=== PATIENT | male | born 1980 | race Hispanic/Latino ===

== ENCOUNTER 2019-04-22 01:18 | Inpatient (IN) | payer OTHER ==
[2019-04-22] VITALS (24 sets, daily range): BP systolic 91–139; BP diastolic 68–104
[~2019-04-22] VITALS: Ht 165.1 cm; Wt 97.5 kg
[2019-04-22] MEDS ORDERED: KETOROLAC TROMETHAMINE 30 MG/ML VIAL IV STA (01:20)
--- NOTE | 2019-04-22 01:24 | NUR ---
CODE STEMI CALLED
[2019-04-22] MEDS ORDERED: ASPIRIN 81 MG CHEW TAB PO ONE (01:30)
[2019-04-22] MEDS ORDERED: ASPIRIN 81 MG CHEW TAB ONE (01:33)
--- NOTE | 2019-04-22 01:35 | NUR ---
ER AND THIS RN AT PTS BEDSIDE, PT INFORMED OF DIAGNOSIS AND NEED FOR CARDIAC PROCEDURE; CONSENTS REVIEWED, ALL AGREED UPON, AND SIGNED BY PATIENT
[2019-04-22 01:43] LABS: BASOPHILS % 0.3 % (0.0-1.0); EOSINOPHILS # (AUTO) 0.3 (0.0-0.4); EOSINOPHILS % 3.2 % (0.0-6.0); HEMATOCRIT 44.9 % (38.2-49.6); HEMOGLOBIN 15.5 g/dL (14.0-18.0); LYMPHOCYTES # (AUTO) 3.1 (1.0-3.2); LYMPHOCYTES % 32.5 % (18.0-39.1); MEAN CORPUSCULAR HEMOGLOBIN 29.9 pg (28-32); MEAN CORPUSCULAR HGB CONC 34.5 g/dL (31-35); MEAN CORPUSCULAR VOLUME 86.5 fL (81-99); MONOCYTES % 10.3 % (4.4-11.3); NEUTROPHILS % 53.5 % (38.7-80.0); PLATELET COUNT 266 x10e3/uL (140-360); RED BLOOD COUNT 5.19 x10e6/uL (4.3-5.7); RED CELL DISTRIBUTION WIDTH 12.4 % (11.7-14.4)
[2019-04-22] MEDS ORDERED: ONDANSETRON HCL INJ 2MG/ML 2ML 2 MG/ML VIAL IV STA (01:48)
[2019-04-22] MEDS ORDERED: MORPHINE SULFATE 2 MG/ML SYR 1ML IV STA (01:48)
[2019-04-22 01:52] LABS: INR 0.97; PROTHROMBIN TIME 13.5 seconds (11.9-14.5)
[2019-04-22 01:53] LABS: PARTIAL THROMBOPLASTIN TIME 32.5 seconds (23.8-35.5)
[2019-04-22] MEDS ORDERED: ONDANSETRON HCL INJ 2MG/ML 2ML 2 MG/ML VIAL ONE (01:55)
[2019-04-22] MEDS ORDERED: MORPHINE SULFATE 2 MG/ML SYR 1ML ONE (01:55)
[2019-04-22 02:01] LABS: ALANINE AMINOTRANSFERASE 24 IU/L (0-55); ALBUMIN 4.2 g/dL (3.5-5.0); ALKALINE PHOSPHATASE 75 IU/L (40-150); BLOOD UREA NITROGEN 11 mg/dL (7-26); BUN/CREATININE RATIO 11 (6-25); CALCIUM 9.5 mg/dL (8.4-10.2); CARBON DIOXIDE 27 mmol/L (22-29); CHLORIDE 104 mmol/L (98-107); CREATINE KINASE 161 IU/L (30-200); CREATININE, SERUM 1.01 mg/dL (0.72-1.25); EST GLOMERULAR FILTRATION RATE > 60 ML/MIN (60-); GLUCOSE 121 mg/dL (74-118); SODIUM 142 mmol/L (136-145)
--- NOTE | 2019-04-22 02:03 | NUR ---
ER MD AND PRIMARY RN NOTIFIED AND AWARE OF CRITICAL LAB VALUE, TROPONIN 1.68.
--- NOTE | 2019-04-22 02:03 | NUR ---
REPORT GIVEN TO DIVISIONAL HUMAN RESOURCES DIRECTOR RNALBARO - INFORMED OF ELEVATED TROPONIN 1.68
--- NOTE | 2019-04-22 02:10 | NUR ---
PT TANSPORTED TO BATTERY TEST ENGINEER VIA STRETCHER
[2019-04-22] MEDS ORDERED: HEPARIN SOD (PORCINE) 1000 UNIT/ML 30ML ONE (02:12)
[2019-04-22] MEDS ORDERED: VERAPAMIL HCL 2.5 MG/ML 2 ML VIAL ONE (02:12)
[2019-04-22] MEDS ORDERED: MIDAZOLAM HCL 2 MG/2 ML VIAL ONE (02:13)
[2019-04-22] MEDS ORDERED: FENTANYL CITRATE/PF 100MCG/2 ML INJ ONE (02:13)
[2019-04-22] MEDS ORDERED: LIDOCAINE HCL 2% LOCAL 20 ML VIAL ONE (02:13)
[2019-04-22 02:14] LABS: CHOL/HDL RATIO 4.8 (3.9-4.7)
[2019-04-22] MEDS ORDERED: SODIUM CHLORIDE 0.9% 1000ML 1,000 ML ONE ×2 (02:14→19:05)
[2019-04-22] MEDS ORDERED: NITROGLYCERIN/D5W 200 MCG/ML 250 ML ONE (02:14)
[2019-04-22] MEDS ORDERED: HEPARIN SOD/SOD CHLORIDE 2,000 ML ONE (02:14)
[2019-04-22] MEDS ORDERED: IOPAMIDOL 370 MG/ML 200 ML INFUS..BTL INJ ONE (02:14)
--- NOTE | 2019-04-22 02:16 | Diagnostic Imaging Report ---
EXAMINATION: CHEST SINGLE (PORTABLE) COMPARISON: None INDICATION: ^CHEST PAIN ^20190422 ^0125 ^Y DISCUSSION: Frontal view of the chest obtained at 0125 hours. HEART AND MEDIASTINUM: The cardiomediastinal silhouette is unremarkable. LINES: None. LUNGS: The lungs are well inflated and clear. No pneumonia or pulmonary edema. PLEURA: No pleural effusion or pneumothorax. BONES AND SOFT TISSUES: No focal osseous lesion. The soft tissues are normal. IMPRESSION: No acute cardiopulmonary disease. Signed by: Dr. Hair Suh MD on 04/22/2019 2:13 AM
--- OUTSIDE RECORDS SUMMARY | 2019-04-22 03:09 | XMS REPORT ---
Author Author [facility] Address Unknown Phone Unavailable Care Team Providers [employer] Auger Operator Name Role Phone Iesla FRANCOIS Unavailable Unavailable Problems This patient has no known problems. Allergies, Adverse Reactions, Alerts This patient has no known allergies or adverse reactions. Medications This patient has no known medications. Results Test Description Test Time Test Comments Text Results Atomic Results Result Comments CHEST SINGLE (PORTABLE) 2019-04-22 02:12:00 [place] [id number] Patient Name: JEREMÍAS MEDINA MR #: [id number] : 1980 Age/Sex: 39/M Req #: [id number] Adm Physician: Ordered by: RAFI FRANCOIS MD Report #: [id number] Location: ER Room/Bed: Procedure: [id number] DX/CHEST SINGLE (PORTABLE) Exam Date: 04/22/19 Exam Time: 0125 REPORT STATUS: Signed EXAMINATION: CHEST SINGLE (PORTABLE) COM PARISON: None INDICATION: CHEST PAIN 20190422 0125 Y DISCUSSION: Frontal view of the chest obtained at 0125 hours. HEART AND MEDIASTINUM: The cardiomediastinal silhouette is unremarkable. LINES: None. LUNGS: The lungs are well inflated and clear. No pneumonia or pulmonary edema. PLEURA: No pleural effusion or pneumothorax. BONES AND SOFT TISSUES: No focal osseous lesion. The soft tissues are normal. IMPRESSION: No acute cardiopulmonary disease. Signed by: Dr. Fabien Suh MD on 04/22/2019 2:13 AM Dictated By: FABIEN SUH MD 2 Transcribed By: ISABEL on 04/22/19212 COPY TO: RAFI FRANCOIS MD
--- NOTE | 2019-04-22 03:19 | Consultation ---
DATE OF CONSULTATION: 04/22/2019 Cardiology Consult Note REASON FOR CONSULT: Suspected ST-elevation ND. CHIEF COMPLAINT: Chest pain radiating down the left arm. HISTORY OF PRESENT ILLNESS: The patient is a 39-year-old man with no previous cardiovascular history, family history of CAD, dad, status post ND at the age of 59, who presents with sudden onset of chest pain in the middle of his chest radiating down to the left arm associated with some diaphoresis. Denies any shortness of breath or heart failure symptoms. No syncope. PAST MEDICAL HISTORY: No significant past medical history. SOCIAL HISTORY: He does not smoke, drink, or abuse drugs. FAMILY HISTORY: As described in HPI. Father had an ND at age 58. REVIEW OF SYSTEMS: Negative other than what is mentioned in HPI. OUTPATIENT MEDICATIONS: None. ALLERGIES: NO KNOWN DRUG ALLERGIES. PHYSICAL EXAMINATION: VITAL SIGNS: Temperature afebrile, pulse 83, respiratory rate 14, blood pressure 142/80, saturating 99% on nasal cannula. GENERAL: Well-developed, well-nourished man in no acute distress. CARDIOVASCULAR: Regular rate and rhythm. No murmurs, rubs, or gallops. LUNGS: Clear to auscultation bilaterally. ABDOMEN: Soft, nontender, nondistended. NEURO AND PSYCH: Alert and oriented to person, place, and time. Normal affect. EXTREMITIES: Warm, well perfused. No ulceration. No edema. INPATIENT MEDICATIONS: Reviewed. LABORATORY DATA: Reviewed. TELEMETRY DATA: Troponin is pending. EKG reviewed shows ST elevations in the inferior leads. No significant reversible changes, however, there are no ST elevations in the anterior or lateral leads to make the diagnosis of pericarditis. ASSESSMENT: Suspected ST-elevation myocardial infarction. PLAN: We will proceed with emergent coronary angiography. Differential diagnosis includes pericarditis given he is young and has no significant risk factor. MD LIAM Jimenez/DOMINIQUE /[id number]
[2019-04-22] MEDS ORDERED: ASPIR 8181 MG PO (06:46)
[2019-04-22] MEDS ORDERED: ASPIRIN 325 MG TAB EC PO ONE (07:52)
--- NOTE | 2019-04-22 08:10 | Operative Report ---
DATE OF PROCEDURE: 04/22/2019 SURGEON: Zane Garza MD INDICATIONS FOR PROCEDURE: Suspected ST-elevation HI. Preprocedure assessment, risks, benefits, and alternatives of treatment were explained to the patient prior to the procedure. The patient has been deemed to be an appropriate candidate for moderate sedation. Informed consent was obtained and documented in the medical record. MEDICATIONS: Please see nursing notes for medications administered throughout the procedure. PROCEDURES PERFORMED: 1. Coronary angiography. 2. Left heart catheterization. PROCEDURE IN DETAIL: The patient was brought to the cardiac catheterization laboratory in an emergent fashion. Right wrist was prepped and draped in a sterile fashion. A 6-Lao Slender sheath was inserted in the right radial artery using modified Seldinger technique. Coronary angiography was performed using a 5-Lao Cristina radial catheter. Left heart catheterization was performed using a pigtail catheter. Multiple orthogonal views were taken of each coronary artery. All catheters were exchanged over a wire. Next, wound site was closed using TR band device. There were no immediate complications. SIGNIFICANT FINDINGS: Left dominant coronary system without any significant coronary artery disease. Left heart catheterization demonstrated LV end-diastolic pressure of 18 mmHg. No gradient across the aortic valve. LV angiogram demonstrated normal LV ejection fraction of 60-70%, with no regional wall motion abnormalities. IMPLANTS: None. SPECIMEN REMOVED: None. ESTIMATED BLOOD LOSS: 10 mL. COMPLICATIONS: None. FINAL RECOMMENDATIONS: 1. Start NSAIDs for treatment of pericarditis. 2. TR band deflation at 30 minutes. Zane Garza MD K[facility]/MODL /[id number]
[2019-04-22] MEDS ORDERED: ASPIRIN 325 MG TAB EC PO SCH (09:00)
[2019-04-22] MEDS ORDERED: ATORVASTATIN 20 MG TAB PO SCH (09:45)
[2019-04-22 10:22] LABS: BASOPHILS % 0.3 % (0.0-1.0); EOSINOPHILS # (AUTO) 0.3 (0.0-0.4); EOSINOPHILS % 3.6 % (0.0-6.0); HEMATOCRIT 41.5 % (38.2-49.6); HEMOGLOBIN 14.1 g/dL (14.0-18.0); LYMPHOCYTES % 29.1 % (18.0-39.1); MEAN CORPUSCULAR HEMOGLOBIN 29.6 pg (28-32); MONOCYTES # (AUTO) 0.7 (0.2-0.8); MONOCYTES % 9.5 % (4.4-11.3); NEUTROPHILS % 57.1 % (38.7-80.0); PLATELET COUNT 234 x10e3/uL (140-360); RED BLOOD COUNT 4.77 x10e6/uL (4.3-5.7); RED CELL DISTRIBUTION WIDTH 12.5 % (11.7-14.4)
--- NOTE | 2019-04-22 10:36 | NUR ---
ATORVASTATIN STARTED. PATIENT EDUCATED ON NEW MEDICATION AND HANDOUT GIVEN
[2019-04-22 10:46] LABS: ANION GAP 9.8 mmol/L (8-16); BLOOD UREA NITROGEN 10 mg/dL (7-26); BUN/CREATININE RATIO 13 (6-25); CALCIUM 8.9 mg/dL (8.4-10.2); CARBON DIOXIDE 25 mmol/L (22-29); CHLORIDE 108 mmol/L (98-107); CREATINE KINASE 376 IU/L (30-200); CREATININE, SERUM 0.75 mg/dL (0.72-1.25); EST GLOMERULAR FILTRATION RATE > 60 ML/MIN (60-); GLUCOSE 101 mg/dL (74-118); POTASSIUM 3.8 mmol/L (3.5-5.1); SODIUM 139 mmol/L (136-145)
[2019-04-22] MEDS ORDERED: ATORVASTATIN 40 MG TAB PO SCH ×2 (11:00→21:00)
--- NOTE | 2019-04-22 11:35 | NUR ---
PAGED CARDIOLOGY REGARDING PATIENT COMPLAINT OF INTERMITTENT MILD CHEST PRESSURE AND REPEAT CARDIAC ENZYME RESULTS
[2019-04-22] MEDS ORDERED: ACETAMINOPHEN 325 MG TAB ONE (11:49)
[2019-04-22] MEDS ORDERED: ACETAMINOPHEN 325 MG TAB PO PRN (12:30)
[2019-04-22] MEDS ORDERED: SODIUM CHLORIDE 0.9% 1000ML 1,000 ML IV ONE (19:15)
[2019-04-22 20:12] LABS: CREATINE KINASE MB 12.3 ng/mL (0-5.0)
--- NOTE | 2019-04-22 21:18 | Consultation ---
DATE OF CONSULTATION: Pulmonary Critical Care Consultation CHIEF COMPLAINT: Inferior wall MD and chest pain. HISTORY OF PRESENT ILLNESS: This is a 39-year-old man. He has a strong family history of coronary artery disease. Apparently, he developed sudden chest pressure and pain. It was radiating down to his arm. He had some diaphoresis. He denies any shortness of breath. He has no cough. When he came to the Emergency Department, he was found to have an inferior wall MD. He was taken to the scientific laboratory supervisor. He had negative coronaries and no stent was required. His troponins however have been elevated. He was started on anti-platelet therapy. PAST SURGICAL HISTORY: None. PAST MEDICAL HISTORY: None. SOCIAL HISTORY: The patient is not a smoker or drinker. FAMILY HISTORY: There is a strong family history of coronary artery disease. ALLERGIES: THERE ARE NO KNOWN DRUG ALLERGIES. REVIEW OF SYSTEMS: There is no headache or fever. The oropharynx is normal. Lymphatic examination shows no submandibular, cervical, or supraclavicular adenopathy. Cardiac exam reveals regular rate and rhythm with normal S1 and S2. The patient is afebrile. There is no headache. He did have chest pain, which has improved. He has no difficulty breathing. He has no cough. He has no abdominal pain. There is no nausea or vomiting. He has no leg swelling. PHYSICAL EXAMINATION: VITAL SIGNS: The patient is afebrile. The vital signs are stable. HEENT: Shows no facial swelling or erythema. CARDIAC: Reveals regular rate and rhythm with normal S1 and S2. There are no murmurs or rubs. LUNGS: Auscultation of lungs reveals clear breath sounds bilaterally. There is no wheezing. ABDOMEN: Soft and nontender. There is no rebound or guarding. EXTREMITIES: Show no leg edema or calf tenderness. There is no cyanosis or clubbing. SKIN: Shows no rashes. NEUROLOGIC: Shows no focal abnormalities. LABORATORY DATA: The BUN to creatinine ratio is normal. The troponin I is 9.5. The other electrolytes are within normal limits. IMPRESSION: Inferior wall myocardial infarction. PLAN: 1. Continue anti-platelet therapy. 2. Lipitor started. 3. Await further recommendations from Cardiology. Joesph Gore MD [facility]/DOMINIQUE /[id number]
[2019-04-22] MEDS: IBUPROFEN 400 MG TAB PO SCH (21:54)
[2019-04-22] MEDS ORDERED: IBUPROFEN 600 MG TAB PO SCH (22:00)
[2019-04-23] VITALS (11 sets, daily range): BP systolic 90–116; BP diastolic 52–88
[2019-04-23] MEDS: IBUPROFEN 400 MG TAB PO SCH ×2 (05:39→14:00)
[2019-04-23] MEDS ORDERED: Atorvastatin PO (06:34)
[2019-04-23] MEDS ORDERED: Ibuprofen PO (06:34)
[2019-04-23] MEDS ORDERED: PERFLUTREN LIPID MICROSPHERES 2 ML VIAL IV ONE (13:28)
--- NOTE | 2019-04-23 17:37 | Progress Note ---
DATE: 04/23/2019 Cardiology Progress Note SUBJECTIVE: The patient denies chest pain or shortness of breath. OBJECTIVE: VITAL SIGNS: Temperature 97.4 degrees, pulse 78, respiratory rate 16, blood pressure 116/87, and oxygen saturation 99% on room air. GENERAL: Awake, alert, in no acute distress. LUNGS: Clear to auscultation bilaterally. No wheezes or crackles. CARDIOVASCULAR: Normal rate. Regular rhythm. No murmur. Normal S1 and S2. ABDOMEN: Soft and nontender. EXTREMITIES: No edema. NEURO: Nonfocal exam. CARDIAC MEDICATIONS: 1. Atorvastatin 40 mg p.o. at bedtime. 2. Ibuprofen 800 mg p.o. q.8 hours. LABS: Troponin 3.971. CRP is pending. Telemetry was personally reviewed and interpreted, revealing normal sinus rhythm. IMPRESSION: Myopericarditis. RECOMMENDATIONS: The patient was emergently taken to the cardiac catheterization laboratory yesterday due to finding of ST elevation on EKG. He was found to have no significant coronary artery disease with a LVEDP of 18 mmHg. Echocardiogram revealed preserved LVEF. No arrhythmias have been seen on telemetry. Recommend the patient to restrict activity for 3 months. Given finding of myocardial involvement, we would recommend NSAID solely for symptom control. Continue atorvastatin for risk factor modification. Recommend the patient restrain from alcohol consumption as well. The patient will need to follow up with Dr. Zane Garza in 2 weeks. Thank you for this consult. We will continue to follow. Mckayla Benjamin MD [facility]/MODL /[id number]
== END 2019-04-23 16:03 | disposition home or self-care (01) | DRG 287 ==
LOC: ER 01:18 → ICU 03:06
PROVIDERS: ADMIT Internal Medicine; ATTEND Internal Medicine
PROC: 4A023N7 Measurement of Cardiac Sampling and Pressure, Left Heart, Percutaneous Approach (ICD-10-PCS; principal; 2019-04-22)
PROC: B2051ZZ Plain Radiography of Left Heart using Low Osmolar Contrast (ICD-10-PCS; 2019-04-22)
PROC: B3001ZZ Plain Radiography of Thoracic Aorta using Low Osmolar Contrast (ICD-10-PCS; 2019-04-22)
PROC: B2011ZZ Plain Radiography of Multiple Coronary Arteries using Low Osmolar Contrast (ICD-10-PCS; 2019-04-22)
DX: I30.9 Acute pericarditis, unspecified (principal); Z83.3 Family history of diabetes mellitus; Z82.49 Family history of ischemic heart disease and other diseases of the circulatory system; Z72.89 Other problems related to lifestyle; I10 Essential (primary) hypertension; E66.9 Obesity, unspecified; Z68.35 Body mass index [BMI] 35.0-35.9, adult
CPT/HCPCS: 36415; 71045; 80048; 80053; 80061; 82550; 82553; 83036; 83880; 84443; 84484; 85025; 85610; 85651; 85730; 86140; 93005; 93306; 93458; 99152; 99284; J1644; J2001; J2250; J2270; J2405; J3010; J7030; Q9967